=== PATIENT | female | born 1960 | race Caucasian/White ===

== ENCOUNTER 2022-03-17 05:56 | Observation (INO) ==
[2022-03-17] MEDS ORDERED: Aspirin 325 MG TABLET PO ONE (07:18)
[2022-03-17 07:49] LABS: Basophils # 0.1 K/mcL (0.0-0.2); Basophils % 0.4 %; Eosinophils # 0.2 K/mcL (0.0-0.6); Eosinophils % 1.3 %; Hematocrit 39.9 % (35.3-44.9); Immature Granulocytes % 0.4 % (0-4); Lymphocytes # 1.6 K/mcL (0.6-4.6); Mean Corpuscular HGB Conc 32.6 g/dL (31.6-35.5); Mean Corpuscular Hemoglobin 28.1 pg (28.0-33.3); Mean Corpuscular Volume 86.4 fL (83.0-100.0); Mean Platelet Volume 9.4 fL (9.4-12.4); Monocytes # 0.9 K/mcL (0.0-1.3); Monocytes % 6.4 %; Platelet Count 341 K/mcL (140-400); Red Blood Count 4.62 M/mcL (3.82-4.97); Red Cell Distribution Width 13.5 % (11.5-14.5); Segmented Neutrophils % 79.5 %
[2022-03-17 07:51] LABS: Neutrophils # 10.7 K/mcL (1.6-8.9); White Blood Count 13.5 K/mcL (4.3-11.1)
[2022-03-17] MEDS ORDERED: Isovue-370 500 ML BOTTLE IVP ONE (08:04)
[2022-03-17 08:10] LABS: BUN/Creatinine Ratio 19 (6-26); Blood Urea Nitrogen 20 mg/dL (8-23); Calcium 9.1 mg/dL (8.6-10.3); Carbon Dioxide 25 mEq/L (23-29); Chloride 105 mEq/L (98-107); Glucose 98 mg/dL (70-105); Osmolality,Calculated 289 (280-300); Potassium 3.9 mEq/L (3.5-5.1); Sodium 138 mEq/L (136-145); Troponin I < 0.03 ng/mL (< 0.04); eGFR For African Americans > 60 (> 60); eGFR For Non-African Americans 54 (> 60)
[2022-03-17] MEDS ORDERED: Ondansetron ODT 4 MG TAB.RAPDIS SL PRN (11:04)
[2022-03-17] MEDS ORDERED: Melatonin 3 MG TABLET PO PRN (11:04)
[2022-03-17] MEDS ORDERED: Naloxone 0.4 MG/ML INJ IVP PRN (11:04)
[2022-03-17] MEDS ORDERED: *HR* HYDROcodone/Acet 5/325 mg TABLET PO PRN (11:04)
[2022-03-17] MEDS ORDERED: Acetaminophen 325 MG TABLET PO PRN (11:04)
[2022-03-17] MEDS ORDERED: Perflutren Lipid Microsphere 1.3 ML in 0.9 % Sodium Chloride 8.7 ML IVP PRN (11:29)
[2022-03-17] MEDS ORDERED: Ketorolac 30 MG/ML VIAL IVP ONE (14:54)
[2022-03-18 02:55] LABS: Basophils % 0.2 %; Eosinophils # 0.1 K/mcL (0.0-0.6); Hematocrit 35.2 % (35.3-44.9); Hemoglobin 11.6 g/dL (11.5-15.4); Immature Granulocytes % 0.3 % (0-4); Lymphocytes # 1.8 K/mcL (0.6-4.6); Lymphocytes % 14.2 %; Mean Corpuscular Hemoglobin 28.1 pg (28.0-33.3); Mean Corpuscular Volume 85.2 fL (83.0-100.0); Mean Platelet Volume 9.8 fL (9.4-12.4); Monocytes # 0.9 K/mcL (0.0-1.3); Monocytes % 7.2 %; Neutrophils # 9.5 K/mcL (1.6-8.9); Platelet Count 347 K/mcL (140-400); Red Blood Count 4.13 M/mcL (3.82-4.97); Red Cell Distribution Width 13.3 % (11.5-14.5); Segmented Neutrophils % 77.1 %; White Blood Count 12.3 K/mcL (4.3-11.1)
[2022-03-18 03:12] LABS: Calcium 8.4 mg/dL (8.6-10.3); Chol/HDL Ratio 3.7 (0-4.9); Magnesium 1.7 mg/dL (1.6-2.6); Phosphorous 2.8 mg/dL (2.7-4.5); Potassium 3.5 mEq/L (3.5-5.1)
[2022-03-18] MEDS ORDERED: *HR* Enoxaparin 40 MG/0.4 ML SYRINGE SQ SCH (06:00)
[2022-03-18] MEDS ORDERED: Regadenoson 0.4 MG/5 ML SYRINGE IVP ONE (07:03)
[2022-03-18 13:52] VITALS: BP 107/56; PULSE 71; TEMP 98.8; O2SAT 94
[2022-03-18] MEDS ORDERED: hydroCHLOROthiazide 25 MG TABLET PO SCH (16:15)
[2022-03-18] MEDS ORDERED: amLODIPine 5 MG TABLET PO SCH (16:15)
[2022-03-18] MEDS ORDERED: cefTRIAXone 1,000 MG in 0.9 % Sodium Chloride Mini Bag 100 ML IVPB SCH (18:00)
[2022-03-18] MEDS ORDERED: Azithromycin 250 MG TABLET PO SCH (18:00)
== END 2022-03-18 18:50 | disposition home or self-care (01) ==
LOC: 3BNU 05:56 → EMEROOARM 05:56 → SUATTDRO 09:36 → 3BNU 10:28
PROVIDERS: ADMIT Internal Medicine; ATTEND Family Medicine